=== PATIENT | male | born 1955 | race Caucasian/White ===

== ENCOUNTER 2021-06-12 11:40 | Emergency (ER) | payer MEDICARE ==
[2021-06-12] MEDS ORDERED: Ibuprofen 800 MG TAB ONE (12:50)
== END 2021-06-12 13:15 | disposition home or self-care (01) ==
LOC: MADERS 11:40 → EEVIPCON 11:40 → MADERS 13:15
DX: S20.211A Contusion of right front wall of thorax, initial encounter (principal); W51.XXXA Accidental striking against or bumped into by another person, initial encounter; Y93.67 Activity, basketball